=== PATIENT | male | born 1995 | race Caucasian/White ===

== ENCOUNTER 2025-04-16 02:38 | Emergency (ER) | payer OTHER, MEDICAID, SELFPAY ==
[2025-04-16 02:40] VITALS: BP 128/83; PULSE 92; RESP 16; TEMP 37.1; O2SAT 95; BMI 28.5
--- NOTE | 2025-04-16 02:58 | EX.ED.VIS.HA ---
HPI History of Present Illness Chief Complaint: Headache Informant: patient and family (Father) Narrative Narrative: 30-year-old male presenting to the emergency room with a chief complaint of headache. Patient states that about once every 6 months he gets a headache. He describes a pressure in the top of his head that starts to feel better if he puts his head upside down. He typically takes ibuprofen goes to bed and sleeps for the most of the next day. He denies any aura nausea or vomiting. He denies any arm leg speech or vision changes. He is able to ambulate in the department without feeling off balance. Dad states that he seems his normal self other than the complaints of the headache. He states that his was concerned that he was feeling warm. He states when the headache came on he had some discomfort in his neck but he states that that is improved. Patient notes some light sensitivity such as when he looks at his phone. Tonight he took 800 mg of ibuprofen and feels that the headache is getting better. Father notes he was concerned about the possibility of it being from hypertension. [facility] Medical History Migraine Home Medications ?Medication ?Instructions ?Recorded ?Last Taken ?Type sertraline 25 mg tablet (Zoloft) 25 mg PO DAILY 04/16/25 Unknown History sumatriptan succinate 50 mg tablet See Rx Instructions PO .COMPLEX #4 04/16/25 Unknown Rx (Imitrex) tabs Allergy/AdvReac Type Severity Reaction Status Date / Time No Known Allergies Allergy Verified 04/16/25 02:43 Social History Smoking Status: Never smoker ROS ROS ED Constitutional Constitutional ED: Denies chills, fever(s) or weight loss Eyes Eyes: Denies blurry vision, change in vision or diplopia ENT ENT ED: Denies ear pain, rhinorrhea or sore throat Cardiovascular Cardiovascular: Denies chest pain, orthopnea, palpitations or racing heartbeat Respiratory/Chest Respiratory/Chest: Denies cough, dyspnea or orthopnea Gastrointestinal Gastrointestinal: Denies abdominal pain, diarrhea, nausea or vomiting Genitourinary Genitourinary ED: Denies dysuria, hematuria or urinary frequency Musculoskeletal Musculoskeletal: Reports neck pain; Denies arthralgias or myalgias Integumentary Denies abscess or rash Neurologic Neurologic: Reports headache(s); Denies paresthesias or weakness Psychiatric Psychiatric: Denies anxiety, depression, suicidal ideation or suicidal thoughts Endocrine Endocrinology: Denies polydipsia, polyphagia or polyuria Allergic/Immunologic Allergic/Immunologic ED: Denies mouth swelling, tongue swelling or urticaria EXAM Physical Exam Const Vital Signs: 04/16/25 02:40 Temperature 98.8 F Temperature Source Oral Pulse Rate 92 Respiratory Rate 16 Blood Pressure 128/83 H Blood Pressure Mean 98 Pulse Ox 95 Oxygen Delivery Method Room Air Positive well nourished and well developed General Appearance ED: well developed HEENT Reports normocephalic, head/scalp atraumatic and moist mucous membranes Eyes PERRL and EOMs intact bilaterally Neck no lymphadenopathy, supple and no JVD Resp normal respiratory effort and clear to auscultation bilaterally Cardio regular rate, regular rhythm and no murmurs GI normal to inspection, nondistended, normoactive bowel sounds and non-tender Palpation: soft Back/Spine no CVA tenderness and normal ROM Extremity normal to inspection General Extremety ED: Negative for edema General Extremity: Negative for edema Neuro oriented x3 and CN's II-XII intact bilaterally Sensorium / Orientation: alert Motor Exam: strength 5/5 throughout Psych mental status grossly normal Mood & Affect: Negative for depressed or tearful Skin no rashes or lesions noted and no wounds MDM MDM MDM Narrative Medical decision making narrative: Differential diagnosis includes migraine cluster headache tension headache stroke intracranial hemorrhage dissection malignancy Spoke with the patient regarding a variety of treatment and evaluation options. He would like to try to go to work this morning and 3 hours. Using shared decision making we are going to give him a dose of Toradol. I can write him a work note for tomorrow. We also talked about abortive therapies for migraines including Imitrex and he is willing to give it that try. I can write a few pills. If they are helpful he can certainly see primary care for more if needed. We talked about red flag symptoms of which she does not have any currently. History & Record Review Discussion w/independent historian: Patient and Family Discharge Plan Triage Chief Complaint: Headache ED Provider: Erick Moore Dx/Rx/DC Orders Clinical Impression: Migraine headache Instructions: ED, Migraine (Classical) Prescriptions: New sumatriptan succinate [Imitrex] 50 mg tablet See Rx Instructions .ROUTE .COMPLEX Qty: 4 0RF Rx Instructions: take 1 tab at onset of headache; if no relief may repeat 1 tab after at least 2 hrs; max = 4 tabs/24 hr No Action sertraline [Zoloft] 25 mg tablet 25 mg PO DAILY Primary Care Provider: Care Physician,No Primary Referrals: Tom Gonzales MD [Med Staff - [facility]] - As Needed Referral Note: for primary care or PCP of your choice NOT,DEFINED [Non-Staff, None] Print Language: [place]ian Disposition Disposition: Home, Self Care
[2025-04-16 03:23] VITALS: BP 128/83; PULSE 92; RESP 16; TEMP 37.1; O2SAT 95
== END 2025-04-16 03:23 | disposition home or self-care (01) ==
PROVIDERS: Emergency Provider Emergency Medicine; Visit Provider Emergency Medicine
DX: G43.909 Migraine, unspecified, not intractable, without status migrainosus (principal); Z79.899 Other long term (current) drug therapy
CPT/HCPCS: 96372; 99282